=== PATIENT | male | born 1995 | race Asian ===

== ENCOUNTER 2017-11-09 09:16 | Emergency (ER) | payer OTHER ==
[~2017-11-09] VITALS: Ht 165.1 cm; Wt 59.0 kg
[2017-11-09 09:19] VITALS: BP 126/91
--- NOTE | 2017-11-09 09:21 | Emergency Room Report ---
History of Present Illness General Chief Complaint: Overdose Source: Patient, EMS Present Illness HPI Patient presents via EMS from a rehabilitation facility. Apparently he took heroine. He was not breathing improved and Narcan was administered. He woke up after this and is complaining about generalized pain. An Accu-Chek was which was 333. He has no history of diabetes. Patient in outpatient detox program. Denies HIV or Hep C. No recent fevers, chest pain, palpitations, NVD, dysuria, headache, seizures, rashes. Occasional constipation. Patient denies SI or HI. Allergies: Coded Allergies: No Known Allergies (Unverified , 11/09/17) Patient History Past Medical History: see triage record Social History: Reports: smoking, drug use Social History Narrative at rehabilitation facility Reviewed Nursing Documentation: PMH: Agreed; PSxH: Agreed Nursing Documentation-PMH Past Medical History: No Stated History Review of Systems All Other Systems: negative except mentioned in HPI Physical Exam Vital Signs Date Time Temp Pulse Resp B/P (MAP) Pulse Ox O2 Delivery O2 Flow Rate FiO2 11/09/17 09:09 97.8 106 14 125/90 98 Room Air 97.9 Sp02 EP Interpretation: reviewed, normal General Appearance: well appearing, no apparent distress, GCS 15 Head: normocephalic Eyes: bilateral eye normal inspection, bilateral eye PERRL ENT: dry mucus membranes Neck: supple Respiratory: lungs clear, normal breath sounds Cardiovascular #1: regular rate, rhythm Cardiovascular #2: 2+ radial (R) Gastrointestinal: normal inspection, normal bowel sounds, non tender, no mass, non-distended Musculoskeletal: back normal, gait/station normal, normal range of motion Neurologic: alert, oriented x3, grossly normal Psychiatric: anxious Skin: normal inspection, warm/dry Medical Decision Making Diagnostic Impression: Primary Impression: Drug overdose Qualified Codes: T50.901A - Poisoning by unspecified drugs, medicaments and biological substances, accidental (unintentional), initial encounter Additional Impressions: Hyperkalemia Renal insufficiency ER Course Patient presents after apparent heroin use after Narcan administration and waking up. Differential includes heroin excess, electrolyte abnormalities, acute myocardial infarction, aspiration pneumonia amongst others. The patient will be evaluated with EKG, chest x-ray and labs. He'll receive IV hydration and observed. Accu-Chek was high and this will be repeated. Labs with hyperkalemia and renal insufficiency. Attempt repeat lab prior to treatment unsuccessful. Refused CXR - Ox normal and no resp distress. Repeat labs with improved K and renal function. Glucose low. Treated and oral intake of juice. Improved labs. Discussed with patient need for outpatient re-evaluation. He spoke with rehab house who are planning inpatient detox. Discharged from ED improved. Laboratory Tests Test 11/09/17 09:19 11/09/17 11:10 11/09/17 12:30 White Blood Count 9.9 K/UL (4.8-10.8) Red Blood Count 6.16 M/UL (4.70-6.10) H Hemoglobin 16.0 G/DL (14.2-18.0) Hematocrit 48.8 % (42.0-52.0) Mean Corpuscular Volume 79 FL (80-99) L Mean Corpuscular Hemoglobin 26.0 PG (27.0-31.0) L Mean Corpuscular Hemoglobin Concent 32.8 G/DL (32.0-36.0) Red Cell Distribution Width 12.2 % (11.6-14.8) Platelet Count 225 K/UL (150-450) Mean Platelet Volume 8.0 FL (6.5-10.1) Neutrophils (%) (Auto) % (45.0-75.0) Lymphocytes (%) (Auto) % (20.0-45.0) Monocytes (%) (Auto) % (1.0-10.0) Eosinophils (%) (Auto) % (0.0-3.0) Basophils (%) (Auto) % (0.0-2.0) Differential Total Cells Counted 100 Neutrophils % (Manual) 87 % (45-75) H Lymphocytes % (Manual) 5 % (20-45) L Monocytes % (Manual) 6 % (1-10) Eosinophils % (Manual) 2 % (0-3) Basophils % (Manual) 0 % (0-2) Band Neutrophils 0 % (0-8) Platelet Estimate Adequate Platelet Morphology Normal Microcytosis 1+ Sodium Level 133 MMOL/L (136-145) L 139 MMOL/L (136-145) Potassium Level 6.2 MMOL/L (3.5-5.1) *H 4.8 MMOL/L (3.5-5.1) Chloride Level 100 MMOL/L (98-107) 107 MMOL/L (98-107) Carbon Dioxide Level 26 MMOL/L (21-32) 29 MMOL/L (21-32) Anion Gap 7 mmol/L (5-15) 3 mmol/L (5-15) L Blood Urea Nitrogen 22 mg/dL (7-18) H 18 mg/dL (7-18) Creatinine 1.7 MG/DL (0.55-1.30) H 1.2 MG/DL (0.55-1.30) Estimate Glomerular Filtration Rate 50.7 mL/min (>60) > 60 mL/min (>60) Glucose Level 295 MG/DL (74-106) H 58 MG/DL (74-106) #L Calcium Level 9.2 MG/DL (8.5-10.1) 8.2 MG/DL (8.5-10.1) L Total Bilirubin 0.2 MG/DL (0.2-1.0) Aspartate Amino Transferase (AST) 40 U/L (15-37) H Alanine Aminotransferase (ALT) 98 U/L (12-78) H Alkaline Phosphatase 111 U/L (46-116) Total Creatine Kinase 186 U/L (26-308) Total Protein 8.2 G/DL (6.4-8.2) Albumin 4.4 G/DL (3.4-5.0) Globulin 3.8 g/dL Albumin/Globulin Ratio 1.2 (1.0-2.7) Salicylates Level 2.0 ug/mL (2.8-20) L Acetaminophen Level < 2 MCG/ML (10-30) L Serum Alcohol < 3 mg/dL Urine Color Yellow Urine Appearance Clear Urine pH 6.5 (4.5-8.0) Urine Specific [place] 1.020 (1.005-1.035) Urine Protein 1+ (NEGATIVE) H Urine Glucose (UA) 4+ (NEGATIVE) H Urine Ketones Negative (NEGATIVE) Urine Occult Blood Negative (NEGATIVE) Urine Nitrite Negative (NEGATIVE) Urine Bilirubin Negative (NEGATIVE) Urine Urobilinogen Normal MG/DL (0.0-1.0) Urine Leukocyte Esterase 1+ (NEGATIVE) H Urine RBC 0 /HPF (0 - 0) Urine WBC 2-4 /HPF (0 - 0) Urine Squamous Epithelial Cells Occasional /LPF Urine Bacteria Occasional /HPF (NONE) Urine Opiates Screen Positive (NEGATIVE) H Urine Barbiturates Screen Negative (NEGATIVE) Phencyclidine (PCP) Screen Negative (NEGATIVE) Urine Amphetamines Screen Negative (NEGATIVE) Urine Benzodiazepines Screen Negative (NEGATIVE) Urine Cocaine Screen Negative (NEGATIVE) Urine Marijuana (THC) Screen Negative (NEGATIVE) EKG Diagnostic Results Rate: normal Rhythm: NSR ST Segments: no acute changes Rhythm Strip Diag. Results EP Interpretation: yes Rhythm: NSR, no PVC's, no ectopy Last Vital Signs Date Time Temp Pulse Resp B/P (MAP) Pulse Ox O2 Delivery O2 Flow Rate FiO2 11/09/17 14:50 98.6 107 20 137/73 96 Room Air 98.2 Status: improved Disposition: HOME, SELF-CARE - rehab Condition: Improved Scripts Naloxone HCl (Narcan) 4 Mg [place] 4 MG NS NEEDED, #1 SPRAY 1 Refill Prov: Rupert Matos M.D. 11/09/17 Rupert Matos M.D. Nov 09, 2017 09:21
[2017-11-09 09:30] LABS: HEMATOCRIT 48.8 % (42.0-52.0); MEAN CORPUSCULAR VOLUME 79 FL (80-99); PLATELET COUNT 225 K/UL (150-450); RED BLOOD COUNT 6.16 M/UL (4.70-6.10); RED CELL DISTRIBUTION WIDTH 12.2 % (11.6-14.8); WHITE BLOOD COUNT 9.9 K/UL (4.8-10.8)
[2017-11-09 09:46] LABS: ALANINE AMINOTRANSFERASE 98 U/L (12-78); ALBUMIN 4.4 G/DL (3.4-5.0); ALBUMIN/GLOBULIN RATIO 1.2 (1.0-2.7); ALKALINE PHOSPHATASE 111 U/L (46-116); ANION GAP 7 mmol/L (5-15); ASPARTATE AMINO TRANSFERASE 40 U/L (15-37); BILIRUBIN,TOTAL 0.2 MG/DL (0.2-1.0); BLOOD UREA NITROGEN 22 mg/dL (7-18); CALCIUM 9.2 MG/DL (8.5-10.1); CARBON DIOXIDE 26 MMOL/L (21-32); CHLORIDE 100 MMOL/L (98-107); CREATINE KINASE 186 U/L (26-308); CREATININE 1.7 MG/DL (0.55-1.30); SODIUM 133 MMOL/L (136-145)
[2017-11-09 09:56] LABS: POTASSIUM 6.2 MMOL/L (3.5-5.1)
[2017-11-09 11:00] VITALS: BP 131/80
[2017-11-09] MEDS ORDERED: Sodium Bicarbonate 50ml Carp IV ONE (11:00)
[2017-11-09] MEDS ORDERED: Sodium Polystyrene Sulfonate 15gm Powder ORAL ONE (11:00)
[2017-11-09] MEDS ORDERED: Insulin Human Regular 100units/ml 3ml IV ONE (11:00)
[2017-11-09 11:27] LABS: APPEARANCE,URINE CLEAR; BILIRUBIN, URINE NEGATIVE (NEGATIVE); GLUCOSE, URINE (UA) 4+ (NEGATIVE); KETONES,URINE NEGATIVE (NEGATIVE); LEUKOCYTE ESTERASE ,URINE 1+ (NEGATIVE); NITRITE,URINE NEGATIVE (NEGATIVE); PH,URINE 6.5 (4.5-8.0); PROTEIN,URINE 1+ (NEGATIVE); UROBILINOGEN,URINE NORMAL MG/DL (0.0-1.0)
[2017-11-09 11:39] LABS: COLOR,URINE YELLOW
[2017-11-09 12:59] LABS: ANION GAP 3 mmol/L (5-15); BLOOD UREA NITROGEN 18 mg/dL (7-18); CALCIUM 8.2 MG/DL (8.5-10.1); CARBON DIOXIDE 29 MMOL/L (21-32); CHLORIDE 107 MMOL/L (98-107); CREATININE 1.2 MG/DL (0.55-1.30); POTASSIUM 4.8 MMOL/L (3.5-5.1); SODIUM 139 MMOL/L (136-145)
[2017-11-09 13:10] VITALS: BP 130/64
[2017-11-09] MEDS ORDERED: NARCAN4 MG NS (14:37)
[2017-11-09 14:50] VITALS: BP 137/73
== END 2017-11-09 14:50 | disposition home or self-care (01) ==
LOC: EDBD 09:16 → EMR 09:30
DX: T50.901A Poisoning by unspecified drugs, medicaments and biological substances, accidental (unintentional), initial encounter (principal); N28.9 Disorder of kidney and ureter, unspecified; E87.5 Hyperkalemia; F17.200 Nicotine dependence, unspecified, uncomplicated
CPT/HCPCS: 36415; 80048; 80053; 80307; 81003; 82550; 85007; 85025; 93005; 99284; G0480; J1815; J2405; 80329